=== PATIENT | male | born 1960 | race Caucasian/White ===

== ENCOUNTER 2019-08-28 07:17 | Emergency (ER) | payer SELFPAY ==
[~2019-08-28] VITALS: Ht 175.3 cm; Wt 111.1 kg
[2019-08-28] MEDS ORDERED: BLOOD PRESSURE M (07:34)
[2019-08-28] MEDS ORDERED: SIMVASTATIN10 MG PO (07:34)
--- NOTE | 2019-08-29 07:26 | EKG ---
[facility] [address] [facility] [place] [address] Signed Sinus rhythm with occasional premature ventricular complexes ST elevation, consider inferior injury or acute infarct ACUTE MT / STEMI Consider right ventricular involvement in acute inferior infarct Abnormal ECG No previous ECGs available Confirmed by JOSÉ MIGUEL NEWTON MD ([id number]) on 08/29/2019 7:25:50 AM Electronically Signed By: JOSÉ MIGUEL NEWTON MD 08/29/19 0726 PATIENT NAME: GABRIELA MURDOCK Electrocardiogram DATE OF : 56 PHYSICIAN: JOSÉ MIGUEL NEWTON MD REPORT #: [id number] REPORT IS CONFIDENTIAL AND NOT TO BE RELEASED WITHOUT AUTHORIZATION
--- NOTE | 2019-08-29 07:26 | EKG ---
[facility] [address] [facility] [place] [address] Signed Sinus rhythm with frequent and consecutive premature ventricular complexes ST elevation, consider inferior injury or acute infarct ACUTE DE / STEMI Consider right ventricular involvement in acute inferior infarct Abnormal ECG Confirmed by JOSÉ MIGUEL NEWTON MD ([id number] on 08/29/2019 7:26:00 AM Electronically Signed By: JOSÉ MIGUEL NEWTON MD 08/29/19 0726 PATIENT NAME: GABRIELA MURDOCK Electrocardiogram DATE OF : 56 PHYSICIAN: JOSÉ MIGUEL NEWTON MD REPORT #: [id number] REPORT IS CONFIDENTIAL AND NOT TO BE RELEASED WITHOUT AUTHORIZATION
== END 2019-08-28 08:00 | disposition short-term general hospital (02) ==
LOC: ED 07:17
DX: I21.19 ST elevation (STEMI) myocardial infarction involving other coronary artery of inferior wall (principal); I10 Essential (primary) hypertension; F17.200 Nicotine dependence, unspecified, uncomplicated; Z79.899 Other long term (current) drug therapy
CPT/HCPCS: 71045; 71046; 80053; 83735; 84484; 85025; 85610; 93005; 93010; 96374; 96375; 99291; G0390; J1644; J2997